=== PATIENT | male | born 1960 | race Caucasian/White ===

== ENCOUNTER 2021-06-01 13:27 | Emergency (ER) | payer MEDICAID, SELFPAY ==
[2021-06-01 13:37] VITALS: BP 210/110; O2SAT 96
[2021-06-01 14:14] VITALS: BP 180/98; PULSE 87; RESP 16; TEMP 37; O2SAT 94; BMI 30.7
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
== END 2021-06-01 14:41 | disposition home or self-care (01) ==
LOC: HO.ED 14:38
PROVIDERS: Emergency Provider Internal Medicine
DX: R41.82 Altered mental status, unspecified (principal)
CPT/HCPCS: 99283